=== PATIENT | male | born 1980 | race Two or more races ===

== ENCOUNTER 2016-11-13 06:42 | Day surgery (SDC) | payer SELFPAY ==
--- NOTE | 2016-11-12 17:14 | PDOC1 ---
History and Physical Date of Admission Date of Admission DATE: 11/13/16 Identification/Chief Complaint Chief Complaint left hand 2nd and 3rd digit injury Source Source: Chart review History of Present Illness History of Present Illness Jacky is a 36 year old male patient who sustained an injury to his left hand 2nd and 3rd digits on 11/09/16 when he cut them with a circular saw while doing some work on his home. He went to [facility] that day where he was x-rayed, sutured, and splinted, then referred to our office for follow up. He was given hydrocodone for pain, which helps some, along with cephalexin for antibiotic. Past Medical History Cardiovascular: No pertinent hx Past Surgical History Past Surgical History: No pertinent history Family History Family History: Hypertension Social History Smoke: <1 pack per day (2 cigarettes per week) ALCOHOL: occassional Drugs: None Current Medications Current Medications Active Scripts Active Keflex (Cephalexin) 500 Mg Capsule 1 Cap PO TID [place] 5-325 Tablet (Acetaminophen/Hydrocodone Bitart) 1 Each Tablet 1 Tab PO Q4- 6HRS PRN Reported Advil (Ibuprofen) 200 Mg Capsule 200 Mg PO PRN PRN Allergies Allergies: Coded Allergies: No Known Drug Allergies (Unverified , 11/12/16) Physical Exam General: Alert, Oriented X3, Cooperative, No acute distress HEENT: Atraumatic, EOMI Lungs: Normal air movement Heart: RRR Abdomen: Soft Extremities: No clubbing, No cyanosis, Normal pulses, Other (The left index finger has an oblique laceration starting on the radial aspect and going dorsally across the distal interphalangeal joint. There is absent sensation along the radial digital nerve of the index finger. He was unable to demonstrate any flexor or extensor tendon function at the distal interphalangeal joint. He does have intact sensation along the ulnar aspect of the index finger. The laceration is incomplete on the ulnar side. The joint has malalignment, but is currently stitched into place and not severely unstable. Multiple mile and sutures are present along the oblique laceration which is about 50% or slightly more of the circumference of the digit. Fortunately, the fingertip is viable, with good capillary refill and intact blood flow. The long finger shows an oblique laceration over the middle phalanx, with a mallet finger deformity, and obvious extensor tendon laceration. Sensation is intact in both the radial and ulnar aspects of the fingertip and the fingertip is viable. Alignment appears normal except for the mallet deformity.) Skin: No rashes Neuro: Normal speech, Normal tone Psych/Mental Status: Mental status NL, Mood NL Images Images Dr. Gunderson reviewed the hand X-rays from [facility]. There is a comminuted fracture of the middle phalanx of the left index finger as it enters the distal interphalangeal joint. The articular surfaces essentially gone and/ or destroyed. There may be some articular surface left of the distal phalanx but there is nothing with which to articulate on the proximal side. The fracture is displaced, with some offset of the distal phalanx from the middle phalanx. The ring finger shows no evidence of fracture but the mallet deformity can be seen based on the positioning. VTE Prophylaxis Ordered VTE Prophylaxis Devices: Yes VTE Pharmacological Prophylaxi: Yes Assessment/Plan Assessment/Plan 1. Left index finger middle phalanx open displaced fracture. 2. Left middle finger extensor tendon laceration. Dr. Gunderson recommended left index finger I&D, treatment of fracture with joint fusion and left long finger extensor tendon repair under general anesthesia. The risks, benefits, and alternatives were discussed with the patient and he agrees to proceed. We will schedule this for tomorrow. EMILE MORRIS Nov 12, 2016 17:14
[~2016-11-13 06:42] MED LIST: CEPH-264 PO; HYDR-971 PO; IBUP200C9 PO; IV RINGERS,LACTATED 1000ML 1,000 ML IV SCH
[2016-11-13] MEDS ORDERED: LIDOCAINE 1% 1 ML SYRINGE. ID PRN (06:45)
[2016-11-13] MEDS ORDERED: FENTANYL PF 100 MCG/2 ML VIAL. IV PRN ×2 (06:45)
[2016-11-13] MEDS ORDERED: MORPHINE SULFATE 2 MG/ML DISP.SYRIN. IV PRN (06:45)
[2016-11-13] MEDS ORDERED: HYDROMORPHONE 2 MG/ML VIAL. IV PRN (06:45)
[2016-11-13] MEDS ORDERED: PROCHLORPERAZINE 10 MG/2 ML VIAL. IV PRN (06:45)
[2016-11-13] MEDS ORDERED: ONDANSETRON PF 4 MG/2 ML VIAL. IV PRN (06:45)
[2016-11-13] MEDS ORDERED: CEFAZOLIN 1GM IVPB FOR OMNI 50 ML IV ONE ×2 (07:30→12:00)
[2016-11-13] MEDS ORDERED: FENTANYL PF 100 MCG/2 ML VIAL. ONE ×2 (08:57→10:38)
[2016-11-13] MEDS ORDERED: MIDAZOLAM HCL 2 MG/2 ML VIAL. ONE (08:57)
[2016-11-13] MEDS ORDERED: PROPOFOL 20 ML IV ONE (08:57)
[2016-11-13] MEDS ORDERED: SEVOFLURANE 31 TO 60 MINUTES. IH ONE (08:57)
[2016-11-13] MEDS ORDERED: DEXAMETHASONE SOD PHOS 20 MG/5 ML VIAL. ONE (08:57)
[2016-11-13] MEDS ORDERED: FAMOTIDINE 20 MG/2 ML VIAL ONE (08:57)
[2016-11-13] MEDS ORDERED: ONDANSETRON PF 4 MG/2 ML VIAL. ONE (08:57)
[2016-11-13] MEDS ORDERED: LIDOCAINE 2% 100 MG/5 ML DISP.SYRIN. ONE (08:58)
[2016-11-13] MEDS ORDERED: BUPIVACAINE-EPI 0.25%-1:200000 50 ML VIAL. ONE (09:51)
[2016-11-13] MEDS ORDERED: KETOROLAC 60 MG/2 ML SYRINGE FOR OR. ONE (10:39)
--- NOTE | 2016-11-13 11:47 | PDOC4 ---
Operative Note Operative Note Date of Procedure: November 13, 2016 Pre-Op Diagnosis: 1. Open fracture left index finger middle phalanx with full interphalangeal joint traumatic arthropathy. 2. Left long finger extensor tendon laceration with open wound Post-Op Diagnosis: Same Procedure: * Open treatment of left index finger middle phalanx fracture with internal fixation and distal interphalangeal joint arthrodesis * Left long finger extensor tendon repair, zone 3 * Debridement left index finger open fracture with debridement of skin, subcutaneous tissue, fascia, and bone * Repair of lacerations Surgeon: Iban Gunderson MD Golf Course Architect: Yohana Motley PA-C Anesthesia: General EBL: 10 mL Specimens Obtained: none Complications: none Drains: none Tourniquet time: 45 minutes Indications for Procedure: The patient is a 36-year-old right-handed man with injuries to his left index and long finger caused by a circular saw. He has obvious disruption of the left index finger extensor tendon over the middle phalanx. He has an irritation of the index finger with probable intact ulnar sided nerve and artery. We talked about options for treatment. He may lose the fingertip of the index finger but we will try to preserve it since there still seems to be partial vascularity and partial sensation. There is extensive bony disruption and the recommended treatment of the fracture with pin fixation, fusing the distal phalanx to the middle phalanx. We talked about the long-term use of that finger which should be tolerable but not normal. We talked about the potential need for any medications. We talked about other potential risks of surgery such as infection, further nerve injury, bleeding, scarring, or other potential surgical or anesthetic complications. I described the office based planned. Removal. All of his questions about surgery were answered and he desired to proceed. Procedure in Detail: The patient was identified in the preoperative holding area. The correct extremity was marked by me. The patient was taken to the operating room where general anesthesia was used. The patient was positioned supine on the operating table. Preoperative antibiotics were given intravenously. A timeout procedure was performed. A tourniquet was used on the upper arm. The limb was prepped with Betadine. The limb was elevated to exsanguinate and the tourniquet was inflated 275 mmHg. Sterile drapes were applied. The long finger extensor tendon laceration was approached first. The previous sutures were removed. The transverse laceration was irrigated. A longitudinal incision was made over the middle phalanx. The tendon ends were identified. This was repaired with 4-0 Prolene and 5-0 Prolene using a Chilton suture pattern. A 0.045 inch K wire was used to stabilize the joint in extension to protect the repair. The image intensifier was used to confirm the position of the K wire. The index finger sutures were now removed. Copious irrigation was used. Debridement was performed with rongeurs removing fragments of bone, fragments of skin, and portions of devitalized tendon and fascia. The remaining joint surface of the distal phalanx was removed which was comminuted and fractured despite the radiographic appearance that it may be intact. The middle phalanx bone was debrided with the rongeurs back to a stable bony platform. Next 0.045 inch K wires were placed antegrade through the distal phalanx starting at the original joint surface and coming out the fingertip. The finger was now realigned and held reduced by Yohana ortez wardrobe assistant, and then the K wires were driven back into the middle phalanx for stable fixation and alignment. Satisfactory reduction and fixation was obtained. Image intensifier views were interpreted throughout by me, and showed satisfactory alignment reduction and fixation of the middle phalanx fracture. Final irrigation was performed. The transverse lacerations were repaired with 3- 0 nylon and 3-0 Prolene. The longitudinal incision over the long finger was also repaired with 3-0 Prolene. The tourniquet was released and adequate blood flow was noted to both fingertips, without any evidence of ischemia. Digital block was performed of both digits using a total of 10 mL 0.5% Marcaine with epinephrine. Xeroform and tube gauze was used followed by AlumaFoam splints. Needle and sponge counts were correct. There were no apparent applications. IBAN GUNDERSON MD Nov 13, 2016 11:47
[2016-11-13] MEDS ORDERED: OXYC-323 PO (12:05)
[2016-11-13] MEDS ORDERED: PROM25TA10 PO ×2 (12:05)
[2016-11-13 12:40] VITALS: BP 148/80
[2016-11-13] MEDS ORDERED: OXYCODONE/APAP 5/325 TABLET. PO ONE (12:45)
== END 2016-11-13 13:02 | disposition home or self-care (01) ==
LOC: SURG 06:42
PROVIDERS: ATTEND Orthopaedic Surgery
DX: S62.601B Fracture of unspecified phalanx of left index finger, initial encounter for open fracture (principal); S62.603B Fracture of unspecified phalanx of left middle finger, initial encounter for open fracture; M12.542 Traumatic arthropathy, left hand; S66.321A Laceration of extensor muscle, fascia and tendon of left index finger at wrist and hand level, initial encounter; F17.210 Nicotine dependence, cigarettes, uncomplicated; X58.XXXA Exposure to other specified factors, initial encounter; Y93.89 Activity, other specified; Y92.9 Unspecified place or not applicable; Y99.9 Unspecified external cause status; Z72.89 Other problems related to lifestyle
CPT/HCPCS: 11012; 26418; 26765; A4215; J0690; J1100; J1885; J2250; J2405; J2704; J3010; J7120; S0028

== ENCOUNTER 2016-11-13 19:40 | Emergency (ER) | payer SELFPAY ==
[~2016-11-13 19:40] MED LIST changes: -IV RINGERS,LACTATED 1000ML 1,000 ML IV SCH; +OXYC-323 PO; +PROM25TA10 PO
[2016-11-13 19:47] VITALS: BP 148/95
--- NOTE | 2016-11-13 22:11 | PHYS DOC ---
Past Medical History Past Medical History: Hypertension Past Surgical History: No Surgical History Smoking: Less than 1pk/day Alcohol Use: Occasionally Drug Use: None Adult General Chief Complaint Chief Complaint: WOUND CHECK HPI HPI Patient is a 36 year old male who presents with bleeding from a surgical incision that began at 1530 today. The patient had surgery to repair tendons in the left second and third fingers after fracture caused by a saw on 11/09/16. The patient reports that the bleeding began spontaneously; he did not injure or hit his hand prior to the onset of the bleeding. He denies any pain in the fingers. She does not have a PCP. Dr. Gunderson was the orthopedic surgeon who performed his surgery today. Review of Systems Review of Systems Constitutional: Denies fever or chills. [] Musculoskeletal: Denies back pain or joint pain. [] Integument: Denies rash or skin lesions. Reports bleeding from surgical incision in left third finger. Neurologic: Denies focal weakness or sensory changes. [] Allergies Allergies Allergies Coded Allergies Type Severity Reaction Last Updated Verified No Known Drug Allergies 11/13/16 No Physical Exam Physical Exam Constitutional: Well developed, well nourished, no acute distress, non-toxic appearance. [] HENT: Normocephalic, atraumatic, oropharynx moist. [] Eyes: PERRLA, EOMI, conjunctiva normal, no discharge. [] Skin: Warm, dry, no erythema, no rash. Dressings were removed by myself with Dr. Goff. There is external pin at the tip of the left third finger. There is a surgical incision over the dorsum of the left third finger PIP joint with sutures intact. There is no active bleeding. Extremities: Left second and third finger tenderness, ROM limited by external pins, mild edema without erythema or warmth. Less than 2 second capillary refill distally. Light touch sensation intact distally. Neurologic: Alert and oriented X 3, normal motor function, normal sensory function, no focal deficits noted. [] Psychologic: Affect normal, judgement normal, mood normal. [] Current Patient Data Vital Signs Vital Signs Date Time Temp Pulse Resp B/P Pulse Ox O2 Delivery O2 Flow Rate FiO2 11/13/16 19:47 98.0 110 18 95 Room Air 98.0 EKG EKG [] Radiology/Procedures Radiology/Procedures [] Course & Med Decision Making Course & Med Decision Making Pertinent Labs and Imaging studies reviewed. (See chart for details) Patient presents with spontaneous bleeding from surgical incision after tendon repair today. On exam, the sutures are intact and there is no active bleeding. Dr. Gunderson was consulted. He recommends replacing the dressing with Xeroform and tube gauze. hotel maintenance technician applied a dressing and AlumaFoam splints were secure to the second and third fingers. The patient was instructed to follow-up with Dr. Gunderson. Return precautions were discussed. He verbalizes understanding and agrees with plan. Dragon Disclaimer Dragon Disclaimer This electronic medical record was generated, in whole or in part, using a voice recognition dictation system. Attending Co-Sign The patient was seen and interviewed as well as examined at the bedside. Dressing was removed at bedside by myself and nurse practitioner Susie, patient noted to have clots surrounding the surgical site, with sutures in place, no evidence of active bleeding. Site was examined without disturbing field, and no evidence of continued bleeding or new injury or concerning findings identified. Patient tolerated examination without issue, states additional pain medication. Findings as above were discussed with Dr. Gunderson with plan as stated. Departure Departure Impression: Primary Impression: Postoperative bleeding from incision Disposition: 01 HOME, SELF-CARE Condition: STABLE Referrals: IBAN GUNDERSON MD Patient Instructions: Postsurgical Bleeding Additional Instructions: The bleeding in your finger has stopped. Dressing was changed. Please leave the dressings intact until instructed by Dr. Gunderson. Return to the emergency department if you have any new or concerning symptoms. SUSIE SMITH Nov 13, 2016 22:12 SUSIE GOFF DO Nov 13, 2016 22:19
== END 2016-11-13 22:23 | disposition home or self-care (01) ==
LOC: ER 19:40
DX: L76.22 Postprocedural hemorrhage of skin and subcutaneous tissue following other procedure (principal); I10 Essential (primary) hypertension; F17.210 Nicotine dependence, cigarettes, uncomplicated; Y83.8 Other surgical procedures as the cause of abnormal reaction of the patient, or of later complication, without mention of misadventure at the time of the procedure; Y92.89 Other specified places as the place of occurrence of the external cause
CPT/HCPCS: 29130; 99283-25

== ENCOUNTER 2019-03-11 18:25 | Emergency (ER) | payer SELFPAY ==
[~2019-03-11] VITALS: Ht 170.2 cm; Wt 99.8 kg
[~2019-03-11 18:25] MED LIST changes: +HYDR-3164 PO; -HYDR-971 PO; -OXYC-323 PO; +OXYC1TAB15 PO
[2019-03-11] MEDS ORDERED: ONDANSETRON PF 4 MG/2 ML VIAL. IV ONE (19:00)
[2019-03-11] MEDS ORDERED: IV NORMAL SALINE 1000ML BAG 1,000 ML IV ONE (19:00)
[2019-03-11 19:18] LABS: BASO % 0 % (0-3); EOS % 0 % (0-3); HEMATOCRIT 43.9 % (39.0-53.0); HEMOGLOBIN 14.7 g/dL (13.0-17.5); LYMPH # 0.7 x10^3/uL (1.0-4.8); LYMPH % 9 % (24-48); MEAN CORPUSCULAR HEMOGLOBIN 29 pg (25-35); MEAN CORPUSCULAR HGB CONC 34 g/dL (31-37); MEAN CORPUSCULAR VOLUME 87 fL (79-100); MONO # 0.1 x10^3/uL (0.0-1.1); MONO % 2 % (0-9); NEUT # 7.4 x10^3uL (1.8-7.7); NEUT % 90 % (31-73); PLATELET COUNT 191 x10^3/uL (140-400); RED BLOOD COUNT 5.02 x10^6/uL (4.30-5.70); RED CELL DISTRIBUTION WIDTH 13.8 % (11.5-14.5); WHITE BLOOD COUNT 8.2 x10^3/uL (4.0-11.0)
[2019-03-11 19:26] LABS: PROTHROMBIN TIME PATIENT 13.5 SEC (11.7-14.0)
[2019-03-11 19:31] LABS: CALCIUM 9.2 mg/dL (8.5-10.1); GFR 82.8; POTASSIUM 3.9 mmol/L (3.5-5.1)
[2019-03-11 19:38] LABS: ALBUMIN 4.4 g/dL (3.4-5.0); ALBUMIN/GLOBULIN RATIO 1.2 (1.0-1.7); TOTAL BILIRUBIN 0.5 mg/dL (0.2-1.0); TOTAL PROTEIN 8.2 g/dL (6.4-8.2)
[2019-03-11 19:39] LABS: % LYMPHS 9 % (24-48); % SEGS 91 % (35-66); PLT ESTIMATE ADEQUATE (ADEQUATE)
[2019-03-11 20:13] LABS: BILIRUBIN,URINE NEGATIVE (NEG); CLARITY,URINE CLEAR; COLOR,URINE YELLOW; NITRITE,URINE NEGATIVE (NEG); PH,URINE 6.5; PROTEIN,URINE 30 mg/dL (NEG-TRACE); UROBILINOGEN,URINE 0.2 mg/dL (0.2 mg/dL)
[2019-03-11 20:18] LABS: SQUAMOUS EPITHELIAL CELL,UR FEW /LPF
[2019-03-11 20:19] LABS: BACTERIA,URINE 0 /HPF (0-FEW); RBC,URINE OCC /HPF (0-2); WBC,URINE OCC /HPF (0-4)
[2019-03-11 20:21] LABS: AMPHETAMINE/METHAMPHETAMINE NEG (NEG); BARBITURATES NEG (NEG); BENZODIAZEPINES NEG (NEG); CANNABINOIDS NEG (NEG); COCAINE NEG (NEG); METHADONE NEG (NEG); OPIATES NEG (NEG); PHENCYCLIDINE NEG (NEG)
--- NOTE | 2019-03-11 20:32 | PHYS DOC ---
Past Medical History Past Medical History: No Pertinent History Past Surgical History: No Surgical History Alcohol Use: Occasionally Drug Use: None Adult General Chief Complaint Chief Complaint: DIZZY/LIGHT HEADED HPI HPI Patient is a 39 year old male who brought in by EMS because of dizziness and vomiting. Patient complaining of intermittent episodes of dizziness since yesterday that became constant today and associated with more than 10 episodes of nonbloody vomiting since this afternoon. Patient stated dizziness getting force with movement of his head and complaining of mild headache without blurry vision and double vision. Patient complaining of ear plugging and fullness. Patient states he had the same problem a few years ago and diagnosed with stress related dizziness. Patient denies chest pain, focal neuro deficit, using illegal drugs. She states she was diagnosed with hypertension previously that was controlled with life style changing. Review of Systems Review of Systems Constitutional: Denies fever or chills [] Eyes: Denies change in visual acuity, redness, or eye pain [] HENT: Denies nasal congestion or sore throat [] Respiratory: Denies cough or shortness of breath [] Cardiovascular: No additional information not addressed in HPI [] GI: Denies abdominal pain, bloody stools or diarrhea, reports nausea and vomiting[] : Denies dysuria or hematuria [] Musculoskeletal: Denies back pain or joint pain [] Integument: Denies rash or skin lesions [] Neurologic: Reports dizziness and headache, denies focal weakness or sensory changes [] Endocrine: Denies polyuria or polydipsia [] All other systems were reviewed and found to be within normal limits, except as documented in this note. Current Medications Current Medications Current Medications Medications (Trade) Dose Ordered Sig/Tanja Start Time Stop Time Status Last Admin Dose Admin Lorazepam (Ativan Inj) 1 mg 1X ONCE 03/11/19 20:30 03/11/19 20:31 DC Ondansetron HCl (Zofran) 4 mg 1X ONCE 03/11/19 19:00 03/11/19 19:01 DC 03/11/19 19:07 4 MG Sodium Chloride 1,000 ml @ 1,000 mls/hr 1X ONCE 03/11/19 19:00 03/11/19 19:59 DC 03/11/19 19:06 1,000 MLS/HR Allergies Allergies Allergies Coded Allergies Type Severity Reaction Last Updated Verified No Known Drug Allergies 11/13/16 No Physical Exam Physical Exam Constitutional: Well developed, well nourished, mild distress, non-toxic appearance. [] HENT: Normocephalic, atraumatic, bilateral external ears normal, oropharynx moist, no oral exudates, nose normal. [] Eyes: PERRLA, EOMI, conjunctiva normal, no discharge. [] Neck: Normal range of motion, no tenderness, supple, no stridor. [] Cardiovascular:Heart rate regular rhythm, no murmur [] Lungs & Thorax: Bilateral breath sounds clear to auscultation [] Abdomen: Bowel sounds normal, soft, no tenderness, no masses, no pulsatile masses. [] Skin: Warm, dry, no erythema, no rash. [] Back: No tenderness, no CVA tenderness. [] Extremities: No tenderness, no cyanosis, no clubbing, ROM intact, no edema. [] Neurologic: Alert and oriented X 3, normal motor function, normal sensory function, no focal deficits noted. [] Psychologic: Affect anxious, judgement normal, mood normal. [] Current Patient Data Vital Signs Vital Signs Date Time Temp Pulse Resp B/P (MAP) Pulse Ox O2 Delivery O2 Flow Rate FiO2 03/11/19 21:30 78 96 03/11/19 19:16 98.5 98.5 03/11/19 18:33 12 153/91 (111) Room Air Lab Values Laboratory Tests Test 03/11/19 19:12 03/11/19 20:05 White Blood Count 8.2 x10^3/uL (4.0-11.0) Red Blood Count 5.02 x10^6/uL (4.30-5.70) Hemoglobin 14.7 g/dL (13.0-17.5) Hematocrit 43.9 % (39.0-53.0) Mean Corpuscular Volume 87 fL (79-100) Mean Corpuscular Hemoglobin 29 pg (25-35) Mean Corpuscular Hemoglobin Concent 34 g/dL (31-37) Red Cell Distribution Width 13.8 % (11.5-14.5) Platelet Count 191 x10^3/uL (140-400) Neutrophils (%) (Auto) 90 % (31-73) H Lymphocytes (%) (Auto) 9 % (24-48) L Monocytes (%) (Auto) 2 % (0-9) Eosinophils (%) (Auto) 0 % (0-3) Basophils (%) (Auto) 0 % (0-3) Neutrophils # (Auto) 7.4 x10^3uL (1.8-7.7) Lymphocytes # (Auto) 0.7 x10^3/uL (1.0-4.8) L Monocytes # (Auto) 0.1 x10^3/uL (0.0-1.1) Eosinophils # (Auto) 0.0 x10^3/uL (0.0-0.7) Basophils # (Auto) 0.0 x10^3/uL (0.0-0.2) Segmented Neutrophils % 91 % (35-66) H Lymphocytes % 9 % (24-48) L Platelet Estimate Adequate (ADEQUATE) Prothrombin Time 13.5 SEC (11.7-14.0) Prothrombin Time INR 1.1 (0.8-1.1) Sodium Level 141 mmol/L (136-145) Potassium Level 3.9 mmol/L (3.5-5.1) Chloride Level 102 mmol/L (98-107) Carbon Dioxide Level 25 mmol/L (21-32) Anion Gap 14 (6-14) Blood Urea Nitrogen 16 mg/dL (8-26) Creatinine 1.0 mg/dL (0.7-1.3) Estimated GFR (Cockcroft-Gault) 82.8 BUN/Creatinine Ratio 16 (6-20) Glucose Level 155 mg/dL (70-99) H Calcium Level 9.2 mg/dL (8.5-10.1) Magnesium Level 2.0 mg/dL (1.8-2.4) Total Bilirubin 0.5 mg/dL (0.2-1.0) Aspartate Amino Transferase (AST) 23 U/L (15-37) Alanine Aminotransferase (ALT) 47 U/L (16-63) Alkaline Phosphatase 88 U/L (46-116) Creatine Kinase 106 U/L (39-308) Troponin I Quantitative < 0.017 ng/mL (0.000-0.055) UL-Asw-L-Type Natriuretic Peptide 31 pg/mL (0-124) Total Protein 8.2 g/dL (6.4-8.2) Albumin 4.4 g/dL (3.4-5.0) Albumin/Globulin Ratio 1.2 (1.0-1.7) Lipase 80 U/L (73-393) Ethyl Alcohol Level < 10 mg/dL (0-10) Urine Collection Type Unknown Urine Color Yellow Urine Clarity Clear Urine pH 6.5 Urine Specific [place] 1.025 Urine Protein 30 mg/dL (NEG-TRACE) Urine Glucose (UA) Negative mg/dL (NEG) Urine Ketones (Stick) 15 mg/dL (NEG) Urine Blood Negative (NEG) Urine Nitrite Negative (NEG) Urine Bilirubin Negative (NEG) Urine Urobilinogen Dipstick 0.2 mg/dL (0.2 mg/dL) Urine Leukocyte Esterase Negative (NEG) Urine RBC Occ /HPF (0-2) Urine WBC Occ /HPF (0-4) Urine Squamous Epithelial Cells Few /LPF Urine Bacteria 0 /HPF (0-FEW) Urine Mucus Marked /LPF Urine Opiates Screen Neg (NEG) Urine Methadone Screen Neg (NEG) Urine Barbiturates Neg (NEG) Urine Phencyclidine Screen Neg (NEG) Urine Amphetamine/Methamphetamine Neg (NEG) Urine Benzodiazepines Screen Neg (NEG) Urine Cocaine Screen Neg (NEG) Urine Cannabinoids Screen Neg (NEG) Urine Ethyl Alcohol Neg (NEG) Laboratory Tests 03/11/19 19:12 Laboratory Tests 03/11/19 19:12 EKG EKG EKG interpreted by me. EKG at 1857 showed sinus rhythm with frequent PVCs, non specific T-wave abnormalities, no acute ST and T-wave abnormalities. Radiology/Procedures Radiology/Procedures [][facility] [address] [place] [address] IMAGING REPORT Signed PATIENT: DINORA CONRAD ACCOUNT: [id number] : 1980 LOCATION: ER AGE: 39 SEX: M EXAM STATUS: DEP ER ORD. PHYSICIAN: AKIRA VILLAGOMEZ MD REASON: dizziness PROCEDURE: CHEST PA & LATERAL PA and lateral chest radiographs 03/11/2019 CLINICAL HISTORY: Unexplained dizziness. PA and lateral digital radiographs of chest were obtained. The cardiac and mediastinal silhouettes are within normal limits in size and configuration. No acute pulmonary infiltrate is seen. No pleural effusion or pneumothorax is noted. The osseous structures are grossly intact. IMPRESSION: No acute abnormality is seen. Electronically signed by: Ellis Garcia MD (03/12/2019 12:58 AM) [facility] DICTATED and SIGNED BY: ELLIS GARCIA MD DATE: 03/[birth year]/1957 [facility] [address] [place] [address] IMAGING REPORT Signed PATIENT: DINORA CONRAD ACCOUNT: [id number] : 1980 LOCATION: ER AGE: 39 SEX: M EXAM STATUS: REG ER ORD. PHYSICIAN: AKIRA VILLAGOMEZ MD REASON: dizziness PROCEDURE: CT HEAD WO CONTRAST CT scan of the head without contrast 03/11/2019 Clinical History: Dizziness. Technique: Unenhanced, contiguous, 5 mm axial sections were obtained through the head. One or more of the following individualized dose reduction techniques were utilized for this study: 1. Automated exposure control. 2. Adjustment of the mA and/or kV according to patient size. 3. Use of iterative reconstruction technique. Findings: The ventricles and sulci are within normal limits in size and configuration. No focal area of abnormal attenuation is seen involving the brain parenchyma. No extra-axial fluid collection is seen. No skull fracture is seen. Impression: Negative study. Electronically signed by: Ellis Garcia MD (03/11/2019 8:32 PM) [facility] DICTATED and SIGNED BY: ELLIS GARCIA MD DATE: 03/11/192031 Course & Med Decision Making Course & Med Decision Making Pertinent Labs and Imaging studies reviewed. (See chart for details) Evaluation of patient in ER showed 39-year-old male patient with complaining of episodes of dizziness nausea and vomiting since yesterday. Patient had unremarkable physical exam except for mild anxiety. Labs and CT head and chest x-ray was unremarkable. Better with IV fluid, Zofran and Ativan. Plan to discharge patient home with diagnose of anxiety and dizziness. Dragon Disclaimer Dragon Disclaimer This electronic medical record was generated, in whole or in part, using a voice recognition dictation system. Departure Departure Impression: Primary Impression: Dizziness Additional Impressions: Nausea and vomiting Anxiety Disposition: HOME, SELF-CARE (at 2129) Condition: IMPROVED Referrals: UNKNOWN PCP NAME (PCP) Patient Instructions: Anxiety and Panic Attacks, Dizziness, Nausea and Vomiting Additional Instructions: Drink plenty of liquids Follow-up with your primary care physician in 3-5 days Return to ER if not getting better Quit smoking cigarettes and drinking alcohol Scripts Ondansetron Hcl (ZOFRAN) 4 Mg Tablet 1 TAB PO PRN Q6-8HRS for nausea, #12 TAB Prov: AKIRA VILLAGOMEZ MD 03/11/19 Problem Qualifiers Additional Impressions: Nausea and vomiting Vomiting type: unspecified Vomiting Intractability: unspecified Qualified Codes: R11.2 - Nausea with vomiting, unspecified AKIAR VILLAGOMEZ MD March 11, 2019 20:32
--- NOTE | 2019-03-11 20:35 | RAD ---
CT scan of the head without contrast 03/11/2019 Clinical History: Dizziness. Technique: Unenhanced, contiguous, 5 mm axial sections were obtained through the head. One or more of the following individualized dose reduction techniques were utilized for this study: 1. Automated exposure control. 2. Adjustment of the mA and/or kV according to patient size. 3. Use of iterative reconstruction technique. Findings: The ventricles and sulci are within normal limits in size and configuration. No focal area of abnormal attenuation is seen involving the brain parenchyma. No extra-axial fluid collection is seen. No skull fracture is seen. Impression: Negative study. Electronically signed by: Ellis Garcia MD (03/11/2019 8:32 PM) [facility]
[2019-03-11 21:30] VITALS: BP 126/75
[2019-03-11] MEDS ORDERED: ONDA4TAB7 PO (21:31)
--- NOTE | 2019-03-12 01:01 | RAD ---
PA and lateral chest radiographs 03/11/2019 CLINICAL HISTORY: Unexplained dizziness. PA and lateral digital radiographs of chest were obtained. The cardiac and mediastinal silhouettes are within normal limits in size and configuration. No acute pulmonary infiltrate is seen. No pleural effusion or pneumothorax is noted. The osseous structures are grossly intact. IMPRESSION: No acute abnormality is seen. Electronically signed by: Ellis Garcia MD (03/12/2019 12:58 AM) [facility]
--- NOTE | 2019-03-12 07:00 | EKG ---
[facility] [address] [place] [address] Test Date: 2019-03-11 Test Time: 18:57:58 Pat Name: DINORA CONRAD Department: Room: Gender: M Ap Operator: : [id number] Requested By: AKIRA VILLAGOMEZ Order Number: [id number] [place] MD: Measurements Intervals [place] Rate: 76 P: 17 LA: 170 QRS: 13 QRSD: 86 T: -1 QT: 384 QTc: 436 Interpretive Statements SINUS RHYTHM VENTRICULAR PREMATURE COMPLEX(ES) NON SPECIFIC T ABNORMALITY ABNORMAL ECG No previous ECG available for comparison
== END 2019-03-11 21:50 | disposition home or self-care (01) ==
LOC: ER 18:25
DX: R42 Dizziness and giddiness (principal); R11.2 Nausea with vomiting, unspecified; F41.9 Anxiety disorder, unspecified; R51 Headache; Z87.891 Personal history of nicotine dependence
CPT/HCPCS: 36415; 70450; 71046; 80053; 80307; 81001; 82550; 83690; 83735; 83880; 84484; 85007; 85025; 85610; 93005; 96361; 96374; 99285; G0480; J2405; J7030